=== PATIENT | male | born 1965 | race African-American/Black ===

== ENCOUNTER 2023-09-22 20:11 | Inpatient (IN) | payer SELFPAY ==
[~2023-09-22] VITALS: Ht 188 cm; Wt 76.2 kg
[2023-09-22] MEDS: SODIUM CHLORIDE 0.9% 1,000 ML IV ONE (21:35)
[2023-09-22] MEDS: DIAZEPAM 5 MG/ML 2ML CPJ IV NR (22:25)
[2023-09-22 22:59] LABS: CLARITY URINE CLEAR (CLEAR); COLOR URINE YELLOW (YELLOW); GLUCOSE URINE NEGATIVE (NEGATIVE); KETONES URINE 4+ (NEGATIVE); LEUKOCYTE ESTERASE URINE NEGATIVE (NEGATIVE); NITRITE URINE NEGATIVE (NEGATIVE); OCCULT BLOOD URINE NEGATIVE (NEGATIVE); PH URINE 5.5 (4.5-8.0); PROTEIN URINE TRACE (NEGATIVE); SPECIFIC GRAVITY URINE 1.022 (1.005-1.030)
[2023-09-22 23:15] LABS: *AMPHETAMINES SCREEN URINE NEGATIVE (NEGATIVE); *BARBITURATES SCREEN URINE NEGATIVE (NEGATIVE); *BENZODIAZEPINES SCREEN URINE NEGATIVE (NEGATIVE); *COCAINE SCREEN URINE NEGATIVE (NEGATIVE); CANNABINOID URINE SCREEN NEGATIVE (NEGATIVE); ECSTASY MDMA SCREEN URINE NEGATIVE (NEGATIVE); METHADONE URINE SCREEN Neg (NEGATIVE); OPIATES URINE SCREEN NEGATIVE (NEGATIVE); PHENCYCLIDINE URINE SCREEN NEGATIVE (NEGATIVE)
[2023-09-22 23:23] LABS: BASOPHILS % 1.2 % (0.0-2.0); DIFFERENTIAL COMMENT 0; EOSINOPHILS % 0.2 % (0.0-5.0); HEMATOCRIT. 38.9 % (42.0-52.0); HEMOGLOBIN. 13.3 g/dL (14.0-18.0); LYMPHOCYTES % 54.8 % (20.0-50.0); MEAN CORPUSCULAR HEMOGLOBIN 35.9 pg (28.0-32.0); MEAN CORPUSCULAR HGB CONC 34.1 g/dL (31.0-37.0); MEAN CORPUSCULAR VOLUME 105.4 fL (80.0-94.0); MEAN PLATELET VOLUME 8.3 fl (7.4-10.4); MONOCYTES % 9.7 % (2.0-8.0); NEUTROPHILS % 34.1 % (40.0-76.0); PLATELET 156 x1000/uL (130-400); RED BLOOD CELL COUNT 3.69 mill/uL (4.7-6.1); RED CELL DISTRIBUTION WIDTH 12.8 % (11.6-14.6); WHITE BLOOD COUNT 3.3 x1000/uL (4.5-11.0)
[2023-09-22 23:25] LABS: ALANINE AMINOTRANSFERASE 46 IU/L (10-49); ALBUMIN 4.3 g/dL (3.2-4.8); ASPARTATE AMINOTRANSFERASE 91 IU/L (<34); BILIRUBIN TOTAL 0.7 mg/dL (0.1-1.0); CALCIUM 8.5 mg/dL (8.7-10.4); CARBON DIOXIDE 19 mEq/L (21-32); CHLORIDE 99 mEq/L (98-107); CREATININE 1.1 mg/dL (0.6-1.3); ETHANOL BLOOD 112 mg/dL (<10); GLUCOSE 120 mg/dL (70-105); PROTEIN TOTAL 6.4 g/dL (6.0-8.3); SODIUM 135 mEq/L (136-145); UREA NITROGEN BLOOD 15 mg/dL (9-23)
[2023-09-22 23:27] LABS: BACTERIA URINE 1+; RBC URINE NONE SEEN /hpf (0-2); SQUAMOUS EPITHELIAL CELL URINE RARE /lpf (RARE/1+); WBC URINE 0-2 /hpf (0-2)
[2023-09-23] MEDS ORDERED: ACETAMINOPHEN 325MG TABLET PO PRN ×2 (04:00)
[2023-09-23] MEDS ORDERED: GUAIFENESIN 200MG/10ML SUGAR FREE UDC PO PRN (04:00)
[2023-09-23] MEDS ORDERED: ZOLPIDEM TARTRATE 5MG TABLET PO PRN (04:00)
[2023-09-23] MEDS ORDERED: MAGNESIUM/ALUMINUM HYDROXIDE/SIMETHICONE 30ML UDC PO PRN (04:00)
[2023-09-23 05:02] LABS: THYROID STIMULATING HORMONE 1.06 uIU/mL (0.55-4.78)
[2023-09-23] MEDS: CHLORDIAZEPOXIDE 25MG CAPSULE PO SCH (06:12)
[2023-09-23] MEDS: ONDANSETRON HCL 4MG/2ML INJ IV PRN (06:13)
[2023-09-23] MEDS: CLONIDINE 0.1MG TABLET PO PRN (06:13)
[2023-09-23] MEDS: MVI, ADULT NO.1 10 ML, FOLIC ACID 1 MG, THIAMINE HCL 100 MG in SODIUM CHLORIDE 0.9% 1,0... IV SCH (06:13)
[2023-09-23] MEDS: SODIUM CHLORIDE 0.9% INJ 3ML FLUSH IVF SCH (06:21)
[2023-09-23 07:13] VITALS: BP 152/81; PULSE 92; RESP 16; TEMP 97.7
[2023-09-23 08:00] VITALS: BP 151/92; PULSE 85; RESP 18; TEMP 97.5
[2023-09-23] MEDS: THIAMINE HCL 100MG TABLET PO SCH (08:57)
[2023-09-23] MEDS: NICOTINE 14MG PATCH TD SCH (08:57)
[2023-09-23 12:00] VITALS: BP 130/63; PULSE 79; RESP 18; TEMP 97.6
[2023-09-23 16:00] VITALS: BP 111/80; PULSE 81; RESP 17; TEMP 97.5
[2023-09-23 20:00] VITALS: BP 135/89; PULSE 99; RESP 16; TEMP 98.8
[2023-09-23] MEDS: POTASSIUM PHOSPHATE 20 MMOL in DEXT 5% WATER 243.3333 ML IV NR (21:52)
[2023-09-23] MEDS: MAGNESIUM 4 G PREMIX 100 ML IV NR (22:01)
[2023-09-24] VITALS: BP_SYST 128; BP_SYST 145; BP_DIAS 77; BP_DIAS 94; PULSE 80; PULSE 88; RESP 17; RESP 18; TEMP 97.7; TEMP 98.1
[2023-09-24 04:00] VITALS: BP 140/80; PULSE 78; RESP 18; TEMP 97.7
[2023-09-24 08:00] VITALS: BP 121/71; PULSE 79; RESP 18; TEMP 96.3
[2023-09-24 13:24] VITALS: BP 128/75; PULSE 75; TEMP 98; O2SAT 98
== END 2023-09-24 14:10 | disposition home or self-care (01) | DRG 425 ==
LOC: ER 20:11 → 8WST 09-23 02:28 → EDBEDREQ 09-23 02:30
PROVIDERS: ADMIT Internal Medicine; ATTEND Internal Medicine
DX: E83.42 Hypomagnesemia (principal); E87.8 Other disorders of electrolyte and fluid balance, not elsewhere classified; F10.239 Alcohol dependence with withdrawal, unspecified; E83.39 Other disorders of phosphorus metabolism; Z72.0 Tobacco use
CPT/HCPCS: 36415; 80053; 80305; 80320; 81003; 82962; 83735; 84100; 84443; 85025; 99285; J2405; J3411; J3475; J3490; J7030; J7060; G0480